=== PATIENT | female | born 1960 | race African-American/Black ===

== ENCOUNTER 2017-02-02 08:10 | Emergency (ER) | payer BC ==
[~2017-02-02] VITALS: Ht 170.2 cm; Wt 139.3 kg
[~2017-02-02 08:10] MED LIST: AFRIN,GENASAL D15 ML BOTH NARES; ALBUTEROL SULF8.5 GM IH; ELAVIL25 MG PO; HYDROCHLOROTHIA50 MG PO; LIPITOR40 MG PO; LO-DOSE ASPIRIN81 M1 PO; LOPRESSOR50 MG PO; MOTRIN800 MG PO; PRINIVIL20 MG PO; VITAMIN D1000 INTUN PO; WELLBUTRIN XL150 MG PO; ZITHROMAX Z-PA250 MG PO
[2017-02-02 10:01] LABS: MCH 26.3 PG (29.0-34.0); MCV 82.2 FL (83-99); MEAN PLAT.VOLUME 10.7 uM^3 (9.5-12.4); PLATELET COUNT 246 K/uL (156-360); RBC DIS.WIDTH-CV 13.8 % (11.8-14.6); RBC DIS.WIDTH-SD 40.7 % (39-53); RED BLOOD COUNT 4.99 M/uL (3.80-5.20); WHITE BLOOD COUNT 3.9 K/uL (4.1-10.2)
[2017-02-02 10:11] LABS: CHLORIDE 100 mEq/L (99-109); POTASSIUM 4.2 mEq/L (3.7-5.4); SODIUM 137 mEq/L (136-147)
[2017-02-02 10:13] LABS: GLUCOSE 126 mg/dL (70-99)
[2017-02-02 10:14] LABS: ANION GAP 9 MEQ/L (2-14)
[2017-02-02 10:15] LABS: TOTAL BILIRUBIN 0.4 mg/dL (0.0-1.0)
[2017-02-02 10:17] LABS: ALKALINE PHOSPHATASE 90 IU/L (3-129); GFR ESTIMATE (CALCULATED) > 59 mL/min/
[2017-02-02 10:18] LABS: ADD MIUA? YES; BILIRUBIN NEGATIVE; BLOOD NEGATIVE; COLOR YELLOW ((YELLOW)); GLUCOSE (STRIP) NEGATIVE; KETONES NEGATIVE; LEUKOCYTES NEGATIVE; NITRITE NEGATIVE; PROTEIN (STRIP) 30; UROBILINOGEN 0.2 MG/DL (0.2-1.0)
[2017-02-02 10:18] LABS: UREA NITROGEN (BUN) 18 mg/dL (9-23)
[2017-02-02 10:20] LABS: LIPASE 29 U/L (1.0-51.0)
[2017-02-02 10:22] LABS: TROP-I INTERPRETATION NEGATIVE; TROPONIN-I < 0.01 ng/mL (0.0-0.30)
[2017-02-02 10:43] LABS: BACTERIA NONE SEEN /HPF; EPITHELIAL CELLS 1+ /HPF; GRANULAR CASTS 0-5 /LPF; MUCUS TRACE /LPF; RED BLOOD CELLS 0-5 /HPF (0-5); UCUL ADDED? NO; WHITE BLOOD CELLS 0-5 /HPF (0-5)
[2017-02-02] MEDS ORDERED: RANITIDINE HCL150 MG PO (12:19)
[2017-02-02] MEDS ORDERED: OMEPRAZOLE20 MG PO (12:19)
[2017-02-02 12:43] LABS: TROP-I INTERPRETATION NEGATIVE; TROPONIN-I < 0.01 ng/mL (0.0-0.30)
[2017-02-02 13:08] VITALS: BP 130/88
== END 2017-02-02 13:09 | disposition home or self-care (01) ==
LOC: EME 08:10
PROVIDERS: Nurse Practitioner Family
DX: R10.10 Upper abdominal pain, unspecified (principal); K21.9 Gastro-esophageal reflux disease without esophagitis; K29.70 Gastritis, unspecified, without bleeding; I10 Essential (primary) hypertension; E78.5 Hyperlipidemia, unspecified; Z90.49 Acquired absence of other specified parts of digestive tract; Z79.82 Long term (current) use of aspirin
CPT/HCPCS: 71020; 74020; 80053; 81003; 83690; 84484; 85027; 93005; 99281; 99284

== ENCOUNTER 2017-04-20 01:38 | Emergency (ER) | payer BC ==
[~2017-04-20] VITALS: Ht 165.1 cm; Wt 139.3 kg
[~2017-04-20 01:38] MED LIST changes: +OMEPRAZOLE20 MG PO; +RANITIDINE HCL150 MG PO
[2017-04-20] MEDS ORDERED: VOLTAREN 1% GE100 GM TP (02:39)
[2017-04-20 02:50] VITALS: BP 170/103
== END 2017-04-20 02:51 | disposition home or self-care (01) ==
LOC: EME 01:38
DX: M25.562 Pain in left knee (principal); E78.5 Hyperlipidemia, unspecified; Z79.82 Long term (current) use of aspirin
CPT/HCPCS: 93971; 99281; 99284